=== PATIENT | male | born 1965 | race Caucasian/White ===

== ENCOUNTER 2016-11-24 14:33 | Inpatient (IN) | payer MEDICARE, MEDICAID ==
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
[2016-11-24] MEDS ORDERED: clonazePAM 0.5 MG TAB PO STA (21:09)
[2016-11-24 21:51] LABS: Aty Lym Flag Slight; CH 33.6; CHCM 35.1; HCT 43.4 % (39.0-53.0); HDW 2.57; HGB 14.8 gm/dL (13.0-17.5); MCH 32.8 pg (25.0-35.0); MCHC 34.1 g/dL (31.0-37.0); MCV 96.1 fL (80.0-100.0); Mean Platelet Volume 6.5; RBC 4.52 m/uL (4.30-5.90); RDW 13.2 % (11.5-15.5); WBC 4.9 k/uL (3.8-10.6); WBC (Perox) 4.92
[2016-11-24 21:55] LABS: Anion Gap 7 mmol/L; Carbon Dioxide 26 mmol/L (22-30); Chloride 108 mmol/L (98-107); Glucose 86 mg/dL (74-99); Non-African American GFR(MDRD) >60 (>60 ml/min/1.73 sqM); Sodium 141 mmol/L (137-145); Total Protein 6.4 g/dL (6.3-8.2)
[2016-11-24 21:56] LABS: ALT 33 U/L (21-72); AST 18 U/L (17-59); Alkaline Phosphatase 61 U/L (38-126); Blood Urea Nitrogen 14 mg/dL (9-20); Calcium 9.2 mg/dL (8.4-10.2); Total Bilirubin 0.3 mg/dL (0.2-1.3)
[2016-11-24 22:11] LABS: Add Differential Manual Differential
[2016-11-24 22:14] LABS: Manual Review Performed; Nucleated Red Blood Cells 0 /100 WBC (0-0); Total Cells Counted 100
[2016-11-24] MEDS ORDERED: ZIPRASIDONE 20 MG VIAL IM PRN (23:06)
[2016-11-24] MEDS ORDERED: ACETAMINOPHEN TAB 325 MG TAB PO PRN (23:06)
[2016-11-24] MEDS ORDERED: MAGNESIUM HYDROXIDE 2,400 MG/10 ML CUP PO PRN (23:06)
[2016-11-24] MEDS ORDERED: MAG HYDROX/AL HYDROX/SIMETH 30 ML CUP PO PRN (23:06)
[2016-11-24] MEDS: clonazePAM 1 MG TAB PO SCH (23:23)
[2016-11-24] MEDS ORDERED: LORazepam 2 MG/ML SYRINGE IM PRN (23:24)
[2016-11-24] MEDS ORDERED: LORazepam 1 MG TAB PO PRN (23:24)
[2016-11-24 23:32] LABS: Appearance,Urine Clear (Clear); Bilirubin,Urine Negative (Negative); Glucose,Urine (UA) Negative (Negative); Ketones,Urine Negative (Negative); Leukocyte Esterase,Urine Negative (Negative); Nitrite,Urine Negative (Negative); Protein,Urine Trace (Negative); UA Billing (MACRO vs. MICRO) CHEM
[2016-11-25] MEDS: ZIPRASIDONE 80 MG CAP PO SCH ×3 (03:13→17:16)
[2016-11-25] MEDS ORDERED: BECLOMETHASONE DIP 80 MCG/PUFF INHALER INHALATION ONE (06:41)
[2016-11-25] MEDS: NEOMYCIN-POLYMYXIN-HC (3.5-10,000-10 MG) OTIC DROPS 10 ML BTL BOTH EARS SCH ×3 (08:54→21:53)
[2016-11-25] MEDS ORDERED: busPIRone HCl 10 MG TAB PO SCH (09:00)
[2016-11-25] MEDS ORDERED: CITALOPRAM HYDROBROMIDE 20 MG TAB PO SCH (09:00)
[2016-11-25] MEDS: BECLOMETHASONE DIP 80 MCG/PUFF INHALER INHALATION SCH ×2 (11:39→21:20)
[2016-11-25] MEDS: ALBUTEROL NEBULIZED 2.5 MG/3 ML INHALATION SCH ×3 (11:39→21:20)
[2016-11-25 13:46] VITALS: BMI 23.0
--- NOTE | 2016-11-25 14:06 | P.CONS ---
History of Present Illness - Reason for Consult Consult date: 11/25/16 Medical management Requesting physician: Jenifer León - Chief Complaint Suicidal - History of Present Illness Patient is a 51-year-old male, patient of Dr. Urias in the outpatient setting, with medical history significant for recent pneumonia, diverticulitis, abdominal aortic aneurysm measuring 4.8 cm per patient, and nicotine dependence. Patient was brought to the emergency department by his son after he had expressed that he wanted to "check out." Patient reports previous history of suicidal ideation and attempts with previous admission to a psychiatric facility. No history of alcohol or drug abuse. Patient reports that he lives with his parents and sister and the home environment is very stressful. Patient reports his father has Alzheimer's disease, his mother is crazy, and his sister is not helping out. Patient reports that he has 3 sons. Patient states that he was recently hospitalized a couple weeks ago for pneumonia. Currently patient denies suicidal or homicidal ideation. Denies chills, fevers, nausea, vomiting, shortness of breath, chest pain, abdominal pain, leg swelling, numbness or tingling, urinary urgency, dysuria, hematuria, constipation, or diarrhea. Patient states his appetite has been fair over the last couple of days. In the emergency department urine toxicology positive for benzodiazepines and marijuana. Vital signs and admission labs unremarkable. Patient was admitted to the psychiatric unit for further treatment. Past Medical History Past Medical History: Pneumonia Additional Past Medical History / Comment(s): hx diverticulitis, abdominal pain and wt loss of 12 lbs,. AAA supposed to have an MRI on the . History of Any Multi-Drug Resistant Organisms: None Reported Past Surgical History: No Surgical Hx Reported Additional Past Surgical History / Comment(s): colonscopy Past Anesthesia/Blood Transfusion Reactions: Motion Sickness Additional Past Anesthesia/Blood Transfusion Reaction / Comm: adopted-very limited family hx Past Psychological History: Anxiety, Bipolar, Depression Additional Psychological History / Comment(s): severe anxiety Smoking Status: Current every day smoker Past Alcohol Use History: None Reported Additional Past Alcohol Use History / Comment(s): has smoked for 30 yrs- < 1 PPD Past Drug Use History: None Reported - Past Family History Mother Family Medical History: Unable to Obtain Additional Family Medical History / Comment(s): adopted Medications and Allergies Home Medications Medication Instructions Recorded Confirmed Type Citalopram Hydrobromide 40 mg PO DAILY 03/25/14 11/24/16 History [Citalopram HBr] Ziprasidone [Geodon] 80 mg PO AC-BID 03/25/14 11/24/16 History busPIRone HCl [Buspar] 20 mg PO TID 03/17/16 11/24/16 History clonazePAM [KlonoPIN] 0.5 mg PO HS 03/17/16 11/24/16 History Albuterol Nebulized [Ventolin 2.5 mg INHALATION RT-Q6H 11/24/16 11/24/16 History Nebulized] Beclomethasone Dipropionate [Qvar 1 puff INHALATION RT-BID 11/24/16 11/24/16 History 80 mcg] Fotmvwhf-Qekdrujmd-Dc Otic 3 drops BOTH EARS TID 11/24/16 11/24/16 History [Cortisporin Otic Soln] Allergies Allergy/AdvReac Type Severity Reaction Status Date / Time poison omar extract Allergy Rash/Hives Verified 11/25/16 13:19 Physical Exam Vitals: Vital Signs Temp Pulse Pulse Resp BP BP Pulse Ox 11/25/16 07:05 97.8 F 81 18 140/80 11/24/16 23:33 98.1 F 70 15 122/77 95 11/24/16 23:12 70 14 135/70 97 Intake and Output 11/24/16 11/25/16 11/25/16 22:59 06:59 14:59 Other: Weight 66.67 kg Patient Weight 11/26/16 06:59 Weight 66.67 kg GENERAL: Pt awake and alert, tired looking, in no acute distress. HEAD: Atraumatic, normocephalic. EYES: Pupils equal, round, and reactive to light, sclera anicteric, conjunctiva are normal. ENT: Oropharynx clear without exudates. Moist mucous membranes. NECK:Normal range of motion, supple without lymphadenopathy or JVD. LUNGS: Breath sounds clear to auscultation bilaterally. No wheezes, rales, or rhonchi. HEART: Heart S1, S2, no S3 or S4. Regular rate and rhythm. No murmurs, rubs or gallops. ABDOMEN: Soft, nontender, nondistended, normoactive bowel sounds. No guarding, no rebound. No masses or organomegaly appreciated. EXTREMITIES: 2+ peripheral pulses. No edema. No calf tenderness. NEUROLOGICAL: Pt oriented x 3. No focal deficits. Strength and sensation grossly intact. PSYCH: Normal mood, normal affect. SKIN: Warm, dry, intact. Normal turgor. No rashes or lesions. Results CBC & Chem 7: 11/24/16 21:25 11/24/16 21:25 Assessment and Plan Plan: Impression: 1. Suicidal ideation, present on admission. 2. Aortic abdominal aneurysm, 4.8 cm reported by patient, being followed in the outpatient setting. 3. History of anxiety, bipolar, and depression. 4. COPD. 5. Nicotine dependence. 6. History of recent pneumonia. 7. History of diverticulitis. 8. Marijuana use. Plan: Patient has been admitted to the inpatient mental health unit under the care of psychiatry. Home medications of been reviewed and resumed. Patient denies need for nicotine patch. Continue to follow mental health suicide precautions per protocol. Patient has been instructed on importance of smoking cessation. Patient will follow-up with Dr. Urias upon discharge. Please contact Dr. Urias for any concerns or questions. The above impression and plan have been discussed and directed by Dr. Urias. Ced REED acting as scribe for Dr. Urias.
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
[2016-11-25] MEDS: clonazePAM 1 MG TAB PO SCH (21:56)
[2016-11-26] MEDS: ALBUTEROL NEBULIZED 2.5 MG/3 ML INHALATION SCH ×5 (04:59→22:37)
[2016-11-26 06:00] VITALS: RESP 16
[2016-11-26] MEDS: VENLAFAXINE HCL ER 75 MG CAP PO SCH (09:15)
[2016-11-26] MEDS: ZIPRASIDONE 80 MG CAP PO SCH ×2 (09:16→17:35)
[2016-11-26] MEDS: NEOMYCIN-POLYMYXIN-HC (3.5-10,000-10 MG) OTIC DROPS 10 ML BTL BOTH EARS SCH ×3 (09:51→20:53)
[2016-11-26] MEDS: BECLOMETHASONE DIP 80 MCG/PUFF INHALER INHALATION SCH ×2 (10:21→20:46)
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
[2016-11-26] MEDS: clonazePAM 1 MG TAB PO SCH (20:53)
[2016-11-27] MEDS: ZIPRASIDONE 80 MG CAP PO SCH ×2 (09:02→17:42)
[2016-11-27] MEDS: VENLAFAXINE HCL ER 75 MG CAP PO SCH (09:02)
[2016-11-27] MEDS: NEOMYCIN-POLYMYXIN-HC (3.5-10,000-10 MG) OTIC DROPS 10 ML BTL BOTH EARS SCH ×2 (09:02→16:33)
--- NOTE | 2016-11-27 09:56 | PN ---
This is a consultation I am on for his severe bipolar depression with suicidal idealization. At this period of time, he has improved and he is in counseling. He has had no shortness of breath. No chest pain. Vital signs are stable. Blood pressure was 121/71, heart rate was in the 70s, temperature is 97.6, respiratory rate is 16. O2 sat is in the 90s on room air. ENT is within normal limits. NECK: Supple with midline trachea. CHEST: Essentially clear to auscultation. HEART: Sinus rhythm. ABDOMEN: Soft, nontender, with no organomegaly. I read the note that was dictated by Dr. Jenifer León who is the psychiatrist on the case. Laboratory that was completed, CBC, complete metabolic profile were within normal limits as was his urinalysis. ASSESSMENT: 1. Severe depression. 2. Suicidal idealization. 3. Bipolar disorder. 4. History of chronic obstructive pulmonary disease. PLAN: From a medical standpoint, I will continue him on the same medications for his breathing, which is his Qvar nebulizer inhalation every 6 hours as needed. Please refer to my orders.
[2016-11-27] MEDS: ALBUTEROL NEBULIZED 2.5 MG/3 ML INHALATION SCH ×3 (10:52→18:58)
[2016-11-27] MEDS: BECLOMETHASONE DIP 80 MCG/PUFF INHALER INHALATION SCH ×3 (10:53→18:58)
--- NOTE | 2016-11-27 18:08 | P.PN ---
Progress Note - Text Interval history: Patient reports that his mood is doing better. He didn't sleep that well last night. He does seem to be eating well overall. He seems to be tolerating the Effexor XR fine, does not relate any adverse side effects. He is seen in cross coverage today for Dr. León. Mental status exam: He is alert and cooperative with the interview. His speech is fluent, not rapid or pressured. Thought processes are organized. His mood is improved. He does relate that his anxiety level is better also. He does not voice any thoughts of harm to self or others. No evidence of psychosis or agitation. Plan: We'll maintain Effexor XR as current. Continue to monitor his mood and his response to the medication. Monitor for any medication side effects. We' ll continue to cover for Dr. León through the weekend.
[2016-11-28] MEDS: ALBUTEROL NEBULIZED 2.5 MG/3 ML INHALATION SCH ×4 (03:09→20:59)
[2016-11-28] MEDS: clonazePAM 1 MG TAB PO SCH ×2 (04:49→20:58)
[2016-11-28] MEDS: NEOMYCIN-POLYMYXIN-HC (3.5-10,000-10 MG) OTIC DROPS 10 ML BTL BOTH EARS SCH ×4 (04:49→22:25)
[2016-11-28] MEDS: VENLAFAXINE HCL ER 75 MG CAP PO SCH (08:30)
[2016-11-28] MEDS: ZIPRASIDONE 80 MG CAP PO SCH ×2 (08:30→17:14)
[2016-11-28] MEDS: BECLOMETHASONE DIP 80 MCG/PUFF INHALER INHALATION SCH ×2 (08:31→20:59)
--- NOTE | 2016-11-28 18:04 | P.PN ---
Progress Note - Text Interval history: Patient is seen in cross coverage for Dr. León. He reports that he is feeling better mood payton. He states that sleeping was on and off last night. He does seem to be eating well. He does not voice any adverse psychotropic medication side effects. Mental status exam: He is alert and cooperative with the interview. Speech is fluent, not rapid or pressured. Thought processes are organized. His affect does show range. His mood is improved. He denies any thoughts of harm to self or others. There is no evidence of psychosis or agitation. Plan: Patient will be maintained on current psychotropic medications. We will monitor for any medication side effects and monitor his ongoing response. Dr. León will resume care this patient starting tomorrow.
[2016-11-29] MEDS: ALBUTEROL NEBULIZED 2.5 MG/3 ML INHALATION SCH ×2 (03:57→10:05)
[2016-11-29 07:00] VITALS: BP 108/62; PULSE 71; TEMP 98
[2016-11-29] MEDS: VENLAFAXINE HCL ER 75 MG CAP PO SCH (08:05)
[2016-11-29] MEDS: ZIPRASIDONE 80 MG CAP PO SCH (08:05)
[2016-11-29] MEDS: NEOMYCIN-POLYMYXIN-HC (3.5-10,000-10 MG) OTIC DROPS 10 ML BTL BOTH EARS SCH (08:05)
[2016-11-29] MEDS: BECLOMETHASONE DIP 80 MCG/PUFF INHALER INHALATION SCH (10:05)
--- NOTE | 2016-11-29 12:38 | PN ---
Patient is feeling much better, much less depressed. Again, he originally was overstressed being that he has to take care of his mom and his dad at home now. His dad does have progressive dementia, which he says is very difficult for both him and his mother. At this time, his vital signs are stable. Blood pressure is 108/72, heart rates is in the 70s, 16 respiratory rate, 98 O2 sat. Laboratory done on 11/24 is unchanged. He is alert, well-oriented to person, place, and thing and thoughts seem to be very well managed. ENT is within normal limits. Chest is essentially clear to auscultation. HEART: Sinus rhythm with no murmur. ABDOMEN: Soft, nontender, with no organomegaly. EXTREMITIES: Negative. ASSESSMENT: 1. Suicidal idealization on admission. 2. History of chronic obstructive pulmonary disease. PLAN: Very important that he continues to work on not smoking. Continue him on his Ventolin updrafts p.r.n., his QVAR 80 mg 1 puff daily. His Klonopin 0.5 mg at bedtime p.r.n. and then 1 mg of Ativan p.r.n. to be managed by Psychiatry. Cortisporin otic solution, get some drops into his ears p.r.n., Effexor 75 mg, Geodon 80 mg a.c. Meals twice a day. Can be dismissed from inpatient upon Psychiatry decision. He will follow up with me on an outpatient basis towards the end of the week.
[2016-11-29] MEDS ORDERED: BECLOMETHASONE DIP 80 MCG/PUFF INHALER INHALATION SCH ×2 (15:57→20:00)
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
== END 2016-11-29 16:42 | disposition home or self-care (01) | DRG 885 ==
LOC: EC 14:33 → 3MHU 22:28
PROVIDERS: ADMIT Psychiatry & Neurology Psychiatry; ATTEND Psychiatry & Neurology Psychiatry
DX: F31.81 Bipolar II disorder (principal); R45.851 Suicidal ideations; F41.9 Anxiety disorder, unspecified; F17.210 Nicotine dependence, cigarettes, uncomplicated; F12.90 Cannabis use, unspecified, uncomplicated; G47.00 Insomnia, unspecified; I71.4 Abdominal aortic aneurysm, without rupture; K57.90 Diverticulosis of intestine, part unspecified, without perforation or abscess without bleeding; J44.9 Chronic obstructive pulmonary disease, unspecified; F10.21 Alcohol dependence, in remission; F14.21 Cocaine dependence, in remission; Z79.899 Other long term (current) drug therapy
CPT/HCPCS: 36415; 80053; 80306; 81003; 82075; 84443; 85025; 94640; 99285